=== PATIENT | female | born 1935 | race Caucasian/White ===

== ENCOUNTER → 2024-02-16 14:32 | Outpatient (REF) | payer OTHER, SELFPAY | LOC: RAD 14:32 | PROVIDERS: ATTENDING PHYSICIAN Internal Medicine | DX: M25.512 Pain in left shoulder (principal) | CPT/HCPCS: 73030 ==

== ENCOUNTER → 2025-01-24 08:22 | Outpatient (REF) | payer OTHER, SELFPAY | LOC: RCS 08:22 | PROVIDERS: ATTENDING PHYSICIAN Internal Medicine | DX: R01.1 Cardiac murmur, unspecified (principal) | CPT/HCPCS: 93306 ==

== ENCOUNTER → 2025-01-27 10:58 | Outpatient (REF) | payer OTHER, SELFPAY | LOC: HWWDC 10:58 | PROVIDERS: ATTENDING PHYSICIAN Internal Medicine | DX: R01.1 Cardiac murmur, unspecified (principal); Z12.31 Encounter for screening mammogram for malignant neoplasm of breast; M81.0 Age-related osteoporosis without current pathological fracture | CPT/HCPCS: 77063; 77067; 77080 ==

== ENCOUNTER → 2025-04-12 08:36 | Outpatient (REF) | payer OTHER, SELFPAY | LOC: WOUND 08:36 | PROVIDERS: ATTENDING PHYSICIAN Surgery; FAMILY PHYSICIAN Internal Medicine | DX: H61.002 Unspecified perichondritis of left external ear (principal) | CPT/HCPCS: 99203 ==

== ENCOUNTER → 2025-04-19 09:19 | Outpatient (REF) | payer OTHER, SELFPAY | LOC: WOUND 09:19 | PROVIDERS: ATTENDING PHYSICIAN Surgery; FAMILY PHYSICIAN Internal Medicine | DX: H61.002 Unspecified perichondritis of left external ear (principal) | CPT/HCPCS: 99213 ==

== ENCOUNTER → 2025-05-17 09:37 | Outpatient (REF) | payer OTHER, SELFPAY | LOC: WOUND 09:37 | PROVIDERS: ATTENDING PHYSICIAN Surgery; FAMILY PHYSICIAN Internal Medicine | DX: H61.002 Unspecified perichondritis of left external ear (principal) | CPT/HCPCS: 99213 ==

== ENCOUNTER 2025-05-31 09:36 | Outpatient (REF) | payer OTHER, SELFPAY | END 2025-05-31 23:59 | disposition home or self-care (01) | LOC: WOUND 09:36 | PROVIDERS: ATTENDING PHYSICIAN Surgery; FAMILY PHYSICIAN Internal Medicine | DX: H61.002 Unspecified perichondritis of left external ear (principal) | CPT/HCPCS: 99213 ==